=== PATIENT | female | born 1960 | race Caucasian/White ===

== ENCOUNTER 2022-11-14 10:22 | Day surgery (SDC) | payer BC, OTHER ==
[2022-11-14] MEDS: Lactated Ringers 1,000 ML IV SCH (10:57)
[2022-11-14] MEDS ORDERED: Propofol 200 MG/20 ML SDV ONE ×2 (11:39→13:01)
[2022-11-14] MEDS ORDERED: fentaNYL 100 MCG/2 ML SDV ONE (11:40)
== END 2022-11-14 14:20 | disposition home or self-care (01) ==
LOC: VM.SDS 10:22
PROVIDERS: ATTEND Family Medicine
DX: Z12.11 Encounter for screening for malignant neoplasm of colon (principal); K57.30 Diverticulosis of large intestine without perforation or abscess without bleeding; Q43.8 Other specified congenital malformations of intestine; Z86.010 Personal history of colon polyps; Z88.8 Allergy status to other drugs, medicaments and biological substances; Z88.2 Allergy status to sulfonamides
CPT/HCPCS: 00811; J2704; J3010; J7120